=== PATIENT | female | born 1985 | race Caucasian/White ===

== ENCOUNTER 2019-01-16 09:32 | Emergency (ER) | payer OTHER ==
[2019-01-16] MEDS: ONDANSETRON 4 MG INJ IV (10:17)
[2019-01-16] MEDS: KETOROLAC 30 MG INJ IV (10:18)
[2019-01-16] MEDS: SOD CHLORIDE 0.9% 1,000 ML IV (10:18)
[2019-01-16 10:22] LABS: ADD MAN DIFF? NO
[2019-01-16 10:26] LABS: WHITE BLOOD COUNT 16.5 10^3/ul (4.8-10.8)
[2019-01-16 10:26] LABS: BASOPHIL # 0.1 10^3/ul (0.0-0.1); BASOPHILS % 0.4 % (0.0-2.0); EOSINOPHILS # 0.1 10^3/ul (0.0-0.5); EOSINOPHILS % 0.7 % (0.0-7.0); HEMOGLOBIN 11.7 g/dl (12.0-16.0); LYMPHOCYTES # 2.4 10^3/ul (0.8-2.9); LYMPHOCYTES % 14.2 % (15.0-51.0); MEAN CORPUSCULAR HEMOGLOBIN 24.9 pg (29.0-33.0); MEAN CORPUSCULAR HGB CONC 30.8 g/dl (32.0-37.0); MEAN CORPUSCULAR VOLUME 80.9 fl (82.0-101.0); MEAN PLATELET VOLUME 10.5 fl (7.4-10.4); MONOCYTE # 1.1 10^3/ul (0.3-0.9); MONOCYTES % 6.5 % (0.0-11.0); NEUTROPHIL # 12.8 10^3/ul (1.6-7.5); NEUTROPHILS % 77.3 % (39.0-77.0); PLATELET COUNT 327 10^3/UL (140-415); RED CELL DISTRIBUTION WIDTH 13.1 % (11.5-14.5)
[2019-01-16 10:30] LABS: ADD UMIC YES; UR ASCORBIC ACID NEGATIVE (NEGATIVE); UR BILIRUBIN (Dip) NEGATIVE (NEGATIVE); UR BLOOD (Dip) NEGATIVE (NEGATIVE); UR CLARITY SLIGHTLY CLOUDY (CLEAR); UR COLOR YELLOW (YELLOW); UR GLUCOSE (Dip) NEGATIVE (NEGATIVE); UR GRANULAR CAST FEW /HPF (NONE SEEN); UR KETONES (Dip) TRACE mg/dL (NEGATIVE); UR LEUKOCYTE ESTERASE (Dip) NEGATIVE Leu/ul (NEGATIVE); UR MUCUS MODERATE /HPF (NONE SEEN); UR NITRITE (Dip) NEGATIVE (NEGATIVE); UR RBC 3 /HPF (0-5); UR SPECIFIC GRAVITY (Dip) 1.025 (1.003-1.030); UR SQUAMOUS EPITHELIAL CELL FEW /HPF (FEW); UR TOTAL PROTEIN (Dip) 2+ mg/dl (NEGATIVE); UR UROBILINOGEN (Dip) NEGATIVE (NEGATIVE); UR WBC 3 /HPF (0-5)
[2019-01-16 10:52] LABS: ALANINE AMINOTRANSFERASE 30 IU/L (13-69); ALBUMIN 4.5 g/dl (3.3-4.9); ALKALINE PHOSPHATASE 56 IU/L (42-121); ANION GAP 11 (5-13); ASPARTATE AMINO TRANSFERASE 28 IU/L (15-46); BILIRUBIN,INDIRECT 0.2 mg/dl (0-1.1); BILIRUBIN,TOTAL 0.2 mg/dl (0.2-1.3); BLOOD UREA NITROGEN 20 mg/dl (7-20); CALCIUM 9.7 mg/dl (8.4-10.2); CARBON DIOXIDE 26 mmol/L (21-31); CHLORIDE 105 mmol/L (97-110); CREATININE 0.78 mg/dl (0.44-1.00); Estimated GFR > 60 mL/min (>60); GLUCOSE 144 mg/dl (70-220); LIPASE 64 U/L (23-300); POTASSIUM 4.5 mmol/L (3.5-5.1); SODIUM 142 mmol/L (135-144); TOTAL PROTEIN 7.8 g/dl (6.1-8.1)
[2019-01-16 10:53] LABS: ALBUMIN/GLOBULIN RATIO 1.36
[2019-01-16 11:01] LABS: TROPONIN-I < 0.012 ng/ml (0.000-0.120)
[2019-01-16] MEDS ORDERED: AMOXICILLIN 500 MG CAP PO (11:30)
[2019-01-16] MEDS: IOHEXOL 300MG/ML 150 ML BTL (13:28)
[2019-01-16] MEDS: SOD CHLORIDE 0.9% 100 ML (13:28)
== END 2019-01-16 14:04 | disposition home or self-care (01) ==
LOC: FTE 09:32
DX: R10.13 Epigastric pain (principal); I10 Essential (primary) hypertension; R11.10 Vomiting, unspecified
CPT/HCPCS: 36415; 74177; 76705; 80053; 81001; 81025; 83690; 84484; 85025; 93005; 96361; 96374; 96375; 99285-25